=== PATIENT | female | born 1985 | race Caucasian/White ===

== ENCOUNTER 2017-02-01 07:26 | Emergency (ER) | payer BC ==
[~2017-02-01] VITALS: Ht 170.2 cm; Wt 73.0 kg
[2017-02-01] MEDS ORDERED: MECLIZINE 25MG TABLET PO ONE (09:45)
[2017-02-01] MEDS ORDERED: SODIUM CHLORIDE 0.9% 1,000 ML IV ONE (09:45)
[2017-02-01 10:15] VITALS: BP 108/61
== END 2017-02-01 12:03 | disposition home or self-care (01) ==
LOC: ER 07:51
DX: H81.12 Benign paroxysmal vertigo, left ear (principal); E03.9 Hypothyroidism, unspecified; F17.200 Nicotine dependence, unspecified, uncomplicated; Z90.89 Acquired absence of other organs; Z88.1 Allergy status to other antibiotic agents
CPT/HCPCS: 81025; 96360; 99284; Z7610; J7030; J8597